=== PATIENT | male | born 1950 ===

== ENCOUNTER 2020-11-10 05:35 | Day surgery (SDC) | payer OTHER ==
[~2020-11-10 05:35] MED LIST: ADVIL200 MG PO
[2020-11-10] MEDS ORDERED: CEFADROXIL500 MG PO (08:27)
[2020-11-10] MEDS ORDERED: ULTRACET PO (08:27)
[2020-11-10] MEDS ORDERED: ALEVE220 M1 PO (08:27)
== END 2020-11-10 12:50 | disposition home or self-care (01) ==
LOC: CIR.AMB 05:35
PROVIDERS: ATTEND Orthopaedic Surgery
DX: M23.322 Other meniscus derangements, posterior horn of medial meniscus, left knee (principal); M94.262 Chondromalacia, left knee